=== PATIENT | female | born 1945 | race Caucasian/White ===

== ENCOUNTER → 2016-07-17 | Outpatient (CLI) | payer OTHER ==
[~2016-07-17] MED LIST: ASCO1CAP3 PO; CHOL100027 PO; OMEG10002 PO; SIMV20TA2 PO; VITA400C15 PO
--- NOTE | 2016-07-17 16:36 | MAMMOGRAPHY REPORT ---
BILATERAL DIGITAL SCREENING MAMMOGRAM WITH CAD: 07/17/2016 CLINICAL HISTORY: Routine screening. The patient reported to the technologist that she has some ten derness in the left upper outer quadrant, which she feels may be muscular in origin. TECHNIQUE: Current study was also evaluated with a Computer Aided Detection (CAD) system. Bilatera l CC and MLO views were obtained. COMPARISON: Comparison is made to exams dated: 07/16/2015 mammogram, 07/11/2014 mammogram, 07/05/2012 m ammogram, 07/06/2013 mammogram, 07/04/2011 mammogram, and 07/02/2010 mammogram - [facility]. BREAST COMPOSITION: The tissue of both breasts is heterogeneously dense, which may obscure small ma sses. FINDINGS: No suspicious masses, calcifications, or areas of architectural distortion are noted in e ither breast. There has been no significant interval change compared to prior exams. Bilateral asym metries are stable compared to prior exams. IMPRESSION: ACR BI-RADS CATEGORY 2: BENIGN There is no mammographic evidence of malignancy. A 1 year screening mammogram is recommended. Also recommend clinical follow-up for left breast pain. The patient will receive written notification of the results. Approximately 10% of breast cancers are not detected with mammography. A negative mammographic repor t should not delay biopsy if a clinically suggestive mass is present. Aviva Bashir M.D. ah/:07/17/2016 15:03:02 Advisory Application Developer: Danay EDWARDS(R)(M), [facility] letter sent: Normal 1/2 BI-RADS Code: ACR BI-RADS Category 2: Benign
== END | disposition home or self-care (01) ==
LOC: C.MAMM 13:12
PROVIDERS: ATTEND Family Medicine
DX: Z12.31 Encounter for screening mammogram for malignant neoplasm of breast (principal)

== ENCOUNTER → 2017-06-17 | Day surgery (SDC) | payer OTHER ==
[2017-06-10 11:38] VITALS: Ht 154.9 cm; Wt 59.1 kg
[~2017-06-17] VITALS: Ht 154.9 cm; Wt 59.1 kg
[~2017-06-17] MED LIST changes: -ASCO1CAP3 PO; +ATROPINE SULFATE 0.1 MG/ML 5ML SYR IV PRN; +BUPIVACAINE 0.5 % 5 MG/1 ML PF 10ML VIAL ONE; +BUPIVACAINE/EPINEPHRINE 0.5% MPF 1:200,000 30 ML VIAL ONE; +CEFAZOLIN 1000MG IV PUSH 7.5 ML IV SCH; -CHOL100027 PO; +EpHEDrine SULFATE INJ 50 MG/ML AMP IV PRN; +FENTANYL CITRATE INJ 50 MCG/1 ML 2 ML VIAL IV PRN; +FENTANYL CITRATE INJ 50 MCG/1 ML 2 ML VIAL ONE; +LACTATED RINGER'S 1000ML 1,000 ML IV SCH; +LIDOCAINE HCL 2% 2 ML VIAL (20MG/ML) ONE; +LIDOCAINE HCL 2% LOCAL 20 ML VIAL ONE; +MIDAZOLAM HCL 1 MG/ML 2ML VIAL ONE; -OMEG10002 PO; +OMEG12006 PO; +ONDANSETRON INJ 2 MG/ML 2 ML VIAL IV PRN; +PROPOFOL IV EMULSION 10 MG/ML 20 ML VIAL IV ONE; +SIMV-150 PO; -SIMV20TA2 PO; +SODIUM CHLORIDE 0.9% 1000ML 1,000 ML IV SCH; +TRAM-453 PO; -VITA400C15 PO; +VITAMIN C PO; +VITAMIN D PO; +VITAMIN E PO
--- NOTE | 2017-06-17 07:56 | History & Physical Bridge - SC ---
H&P Re-Evaluation Bridge Note: I have examined the patient, reviewed the History & Physical and in the interval since the performance of the History & Physical I have noted the following changes of clinical significance: No changes noted
--- NOTE | 2017-06-17 08:50 | [facility] Post Operative Brief Note ---
Immediate Operative Summary Operative Date Jun 17, 2017. Pre-Operative Diagnosis Trigger Finger Right Ring Finger Post-Operative Diagnosis Same Procedure(s) Performed Trigger Finger Release Right Ring Finger Surgeon Dr. Davis Outer Diameter Technician Surgeon(s) Car Paez PA-C Estimated Blood Loss Minimal Findings Consistent with Post-Op Diagnosis Specimens None Drains None Anesthesia Type MAC Complication(s) none Disposition Accompanied Pt To Recovery: no Disposition: Recovery Room / PACU
--- NOTE | 2017-06-17 08:52 | Discharge Instructions-SurgCtr ---
Discharge Instructions Date of Service Jun 17, 2017. Visit Reason for Visit: Right Ring Trigger Finger Discharge Discharge Diagnosis / Problem: right ring trigger finger Discharge Goals Goal(s): Decrease discomfort, Therapeutic intervention Activity Recommendations Activity Limitations: per Instructions/Follow-up section Anesthesia . Post Anesthesia Instructions: If you have had General Anesthesia or IV Sedation: * Do not drive today. * Resume driving when surgeon permits. * Do not make important decisions or sign legal documents today. * Call surgeon for: 1. Temperature elevations greater than 101 degrees F. 2. Uncontrollable pain. 3. Excessive bleeding. 4. Persistent nausea and vomiting. 5. Medication intolerance (nausea, vomiting or rash). * For nausea and vomiting use only clear liquids such as: tea, soda, bouillon until nausea subsides, then gradually increase diet as tolerated. * If you have any concerns or questions, call your surgeon's office. If physician is unavailable and it is an emergency, call 911 or go to the nearest emergency room. . Instructions / Follow-Up Instructions / Follow-Up MEDICATIONS: * Resume previous medications unless instructed otherwise by your surgeon. * Always take pain medication on a full stomach or with food to avoid upset stomach. * Do not drink alcohol or drive while taking narcotics. * Ibuprofen or Tylenol may be taken if narcotic not needed. SPECIAL CARE INSTRUCTIONS: __ None __ Keep extremity elevated and iced x 48 hours; apply ice 20-30 minutes 8-10 times/day. May remove at night. __ Sling __24 hrs/day __ Remove at night __ Shoulder Immobilizer __ 24 hrs/day __ Remove at night _x_ Dressing _x_ Maintain until seen in office, may shower with plastic over site __ Remove dressings in 24-48 hours and then may shower __ Cover incisions with band-aids after showering __ Do not remove steri-strips Call physician if chills or temperature rises above 102 degrees or pain unrelieved by prescribed pain medications at . . Diet Recommendations Home Diet: resume previous diet Procedures Procedures Performed: Trigger Finger Release Right Ring Finger Pending Studies Studies pending at discharge: no Medical Emergencies . Who to Call and When: Medical Emergencies: If at any time you feel your situation is an emergency, please call 911 immediately. . Non-Emergent Contact Non-Emergency issues call your: Surgeon . . "Provider Documentation" section prepared by Deejay Paez. .
[2017-06-17 08:55] VITALS: TEMP 36.5
--- NOTE | 2017-06-17 09:19 | Anesthesia Progress Nt - [facility] ---
Anesthesia Post Op Note Date & Time Jun 17, 2017 at 09:19 Vital Signs Pain Intensity: 0 Vital Signs Past 12 Hours Date Time Temp Pulse Resp B/P (MAP) Pulse Ox O2 Delivery O2 Flow Rate FiO2 06/17/17 08:55 36.5 65 12 121/56 (77) 97 Room Air 06/17/17 07:31 36.6 72 16 155/79 (104) 98 Room Air Notes Mental Status: alert / awake / arousable, participated in evaluation Pt Amnestic to Procedure: Yes Nausea / Vomiting: adequately controlled Pain: adequately controlled Airway Patency, RR, SpO2: stable & adequate BP & HR: stable & adequate Hydration State: stable & adequate Anesthetic Complications: no major complications apparent
[2017-06-17 09:29] VITALS: BP 135/78; PULSE 63; O2SAT 100
--- NOTE | 2017-06-17 20:44 | OPERATIVE REPORT ---
DATE OF OPERATION: 06/17/2017 SURGEON: Sim Davis MD. E/M ENGINEER: YVES Arana. PREOPERATIVE DIAGNOSIS: Right ring trigger finger. POSTOPERATIVE DIAGNOSIS: Same. PROCEDURE PERFORMED: Right ring trigger finger/A1 prashant release. COMPLICATIONS: None. ESTIMATED BLOOD LOSS: Minimal. TOURNIQUET TIME: 3 minutes at 250 mmHg. ANESTHESIA: Local with IV sedation. OPERATIVE INDICATIONS: The patient is a 71-year-old female who has had about a 6-month history of right ring finger pain, discomfort and catching and locking. She had been through several injections which provided some temporary relief only. Her symptoms recurred. She elected to proceed with surgical treatment. OPERATIVE PROCEDURE: The patient taken to the operating room, identified and placed on the operative table in supine position. All contact areas were appropriately padded. IV antibiotics provided by anesthesia team. A right forearm tourniquet was placed. Some IV sedation was provided. 5 mL of a 50:50 combination of 0.5% Marcaine and 2% lidocaine were then injected in and around the proposed incision site. The right hand was then prepped and draped in usual sterile fashion. The right was elevated and exsanguinated with Esmarch and tourniquet was placed at 250 mmHg. A transverse incision was made at the base of the right ring finger, just distal to the distal palmar crease. Blunt dissection was carried out through subcutaneous tissue directly down to the flexor tendon. The flexor tendon sheath was identified. The A1 prashant was identified. It was cleaned of all soft tissues. It was then transected with the use of scissors. Finger was taken through active and active assisted range of motion, there was no further catching or locking. Attention was then drawn toward closing. The wound was irrigated with copious amounts of normal saline. The tourniquet was then let down for a tourniquet time of 3 minutes. Hemostasis was assured with the use of electrocautery. The skin was then closed with 5-0 nylon suture in a horizontal mattress fashion. The hand was then cleaned and dried. A sterile dressing of Xeroform, 4 x 4's, sterile cast padding, Huseyin bandage was applied. The patient then transferred to the recovery room in stable condition. The patient tolerated the procedure well with no complication. All needle and sponge counts were correct at the end of the operation. I attest to the content of the Intraoperative Record and any orders documented therein. Any exception s are noted below.
== END | disposition home or self-care (01) ==
LOC: X.SURG 07:22
PROVIDERS: ATTEND Orthopaedic Surgery Sports Medicine
DX: M65.341 Trigger finger, right ring finger (principal); E78.00 Pure hypercholesterolemia, unspecified; Z79.82 Long term (current) use of aspirin; Z98.890 Other specified postprocedural states; Z90.89 Acquired absence of other organs; Z88.6 Allergy status to analgesic agent

== ENCOUNTER → 2017-07-20 | Outpatient (CLI) | payer OTHER ==
[~2017-07-20] MED LIST changes: -ATROPINE SULFATE 0.1 MG/ML 5ML SYR IV PRN; -BUPIVACAINE 0.5 % 5 MG/1 ML PF 10ML VIAL ONE; -BUPIVACAINE/EPINEPHRINE 0.5% MPF 1:200,000 30 ML VIAL ONE; -CEFAZOLIN 1000MG IV PUSH 7.5 ML IV SCH; -EpHEDrine SULFATE INJ 50 MG/ML AMP IV PRN; -FENTANYL CITRATE INJ 50 MCG/1 ML 2 ML VIAL IV PRN; -FENTANYL CITRATE INJ 50 MCG/1 ML 2 ML VIAL ONE; -LACTATED RINGER'S 1000ML 1,000 ML IV SCH; -LIDOCAINE HCL 2% 2 ML VIAL (20MG/ML) ONE; -LIDOCAINE HCL 2% LOCAL 20 ML VIAL ONE; -MIDAZOLAM HCL 1 MG/ML 2ML VIAL ONE; -ONDANSETRON INJ 2 MG/ML 2 ML VIAL IV PRN; -PROPOFOL IV EMULSION 10 MG/ML 20 ML VIAL IV ONE; -SODIUM CHLORIDE 0.9% 1000ML 1,000 ML IV SCH; -TRAM-453 PO
--- NOTE | 2017-07-21 07:39 | MAMMOGRAPHY REPORT ---
BILATERAL DIGITAL SCREENING MAMMOGRAM TOMOSYNTHESIS WITH CAD: 07/20/2017 CLINICAL HISTORY: Routine screening. TECHNIQUE: Breast tomosynthesis in addition to standard 2D mammography was performed. Current study was also evaluated with a Computer Aided Detection (CAD) system. COMPARISON: Comparison is made to exams dated: 07/17/2016 mammogram, 07/16/2015 mammogram, 07/11/2014 m ammogram, 07/06/2013 mammogram, 07/05/2012 mammogram, and 07/04/2011 mammogram - [facility]. BREAST COMPOSITION: The tissue of both breasts is heterogeneously dense, which may obscure small mas ses. FINDINGS: A linear scar marker overlies the upper outer posterior right breast, denoting a skin scar from prior chest tube. There is stable focal asymmetry in the 12:00 posterior right breast, which ap pears similar on all available prior mammograms dating back to at least 2008, therefore likely benign . No new suspicious mass, architectural distortion or cluster of microcalcifications is seen. IMPRESSION: ACR BI-RADS CATEGORY 1: NEGATIVE There is no mammographic evidence of malignancy. A 1 year screening mammogram is recommended. The pa tient will receive written notification of the results. Approximately 10% of breast cancers are not detected with mammography. A negative mammographic report should not delay biopsy if a clinically suggestive mass is present. Jaylin Brice M.D. ay/:07/20/2017 16:13:21 Imaging Services Director: Danay HARDING)(Korin), [facility] letter sent: Normal 1/2 BI-RADS Code: ACR BI-RADS Category 1: Negative
== END | disposition home or self-care (01) ==
LOC: C.MAMM 13:36
PROVIDERS: ATTEND Physician Assistant
DX: Z12.31 Encounter for screening mammogram for malignant neoplasm of breast (principal)